=== PATIENT | female | born 1990 | race Caucasian/White ===

== ENCOUNTER → 2017-11-21 | Outpatient (CLI) | payer OTHER ==
[2017-11-21 15:11] VITALS: BP 112/72; PULSE 89; RESP 12; TEMP 98.5; BMI 20.7
--- NOTE | 2017-11-21 15:25 | P.GSHP ---
History of Present Illness H&P Date: 11/21/17 The patient is a 27-year-old white female who underwent a Pap smear and at that time the of healthcare provider felt that the patient had nodularity in her breast. She herself has not noted any nodularity that she is concerned about. She did however have 2 ultrasounds performed. The ultrasound revealed at the level o'clock position some mild shadowing which remained at the location which had previously seen some mild shadowing and was considered to be suspicious by the radiologist. Additionally at the 2 o'clock position there was some somewhat less well-visualized then previous area which was considered to be persistent though and also suspicious. The feeling was that there was subtle findings on ultrasound at the 11:00 and 2:00 positions. The patient denies any trauma to her breast. The patient has not had any infections of her breast. The patient has not had any nipple discharge or skin changes of concern. The patient has not noticed any cyclical changes in her breast related to her periods. Family history: 1. Brother: Brain tumor 2. Maternal grandfather: Colon cancer 3. Mother: Ovarian cancer Hormonal history: Menarche: 12 Pregnancies: One , breast-fed, patient was 23 Periods are regular Past surgical history: 1. Umbilical hernia 2. Tonsils and adenoids Past medical history: 1. Asthma 2. Kidney stones 3. Anxiety/depression Social history: Smokin packs per month Alcohol: Negative Drugs: Marijuana 2-3 times per week - Constitutional Comment: fever better now Constitutional: Reports fever, Denies chills - EENT Eyes: denies blurred vision, denies pain Ears: deny: decreased hearing, tinnitus Ears, nose, mouth and throat: Denies headache, Denies sore throat - Breasts Breasts: bilateral: as per HPI - Cardiovascular Cardiovascular: Denies chest pain, Denies shortness of breath - Respiratory Comment: smoker Respiratory: Denies cough, Denies 7 - Gastrointestinal Gastrointestinal: Denies abdominal pain, Denies diarrhea, Denies nausea, Denies vomiting - Genitourinary (Female) Comment: kidney stones Genitourinary: Reports hematuria - Menstruation Menstruation: Reports period normal - Musculoskeletal Comment: arthritis - Integumentary Comment: vitaligo - Neurological Neurological: Denies numbness, Denies weakness - Psychiatric Psychiatric: Reports anxiety, Reports depression - Endocrine Comment: patient with recent weight loss Endocrine: Reports weight change, Denies fatigue - Hematologic/Lymphatic Comment: none - Allergic/Immunologic Allergic/Immunologic: Reports seasonal allergies Medications and Allergies Allergies Allergy/AdvReac Type Severity Reaction Status Date / Time No Known Allergies Allergy Unverified 11/21/17 15:03 Surgical - Exam - General cachectic - Eyes normal ocular movement - ENT no hearing loss, no congestion - Neck no masses, trachea midline - Respiratory normal respiratory effort, clear to auscultation - Cardiovascular Rhythm: regular Heart Sounds: normal: S1, S2 - Abdomen Abdomen: soft, non tender, no guarding, no rigid, no rebound - Integumentary multiple tatoos - Neurologic no disoriented, no combative - Musculoskeletal normal gait, normal posture - Psychiatric oriented to time, oriented to person, oriented to place, speech is normal, memory intact Breast examination: Right breast: Multiple positional exam no dominant masses or nodules of concern in the right breast Right axilla: No adenopathy of concern Left breast: Multiple positional exam no dominant masses or nodules of concern in the left breast, special attention to the areas were ultrasound abnormalities were seen did not reveal any palpable lesions of concern Left axilla: No adenopathy of concern Results ultrasound results reviewed Assessment and Plan Assessment: Impression/plan: 1. Ultrasound abnormality left breast for which mammogram has been recommended 2. Fever of unknown origin 3. Kidney stones 4. Anxiety depression 5. Asthma 6. Nicotine dependence 7. Personality disorder 8. Vitamin deficiencies Plan: 1. Left breast mammogram depending on results of this will most likely follow the patient conservatively if we are unable to get a breast MRI will see patient in three months 2. Medical management of medical problems cc: Vickie CAMPOS; ( [facility])
--- NOTE | 2017-11-26 07:42 | MM ---
Reason for exam: clinical finding. Baseline mammogram. Physical Findings: Nurse did not find any significant physical abnormalities on exam. MG Diagnostic Mammo w CAD MARTIN Bilateral CC and MLO view(s) were taken. No prior studies available for comparison. The breast tissue is extremely dense which could obscure a lesion on mammography. No suspicious abnormality. However given the prior outside left breast abnormalities, biopsy should be considered at both sites. These results were verbally communicated with the patient and result sheet given to the patient on 11/22/17. ASSESSMENT: Suspicious, BI-RAD 4 RECOMMENDATION: Ultrasound core biopsy of the left breast. Ultrasound core biopsy left at 2 o'clock and 11 o'clock after prescan re-evaluation. Abnormal mammogram. Called Dr Prescott with mammographic findings and has scheduled an appointment for the patient for 12/05/17 at 12:[address] Prescott. PRELIMINARY REPORT CALLED AND FAXED TO DR. PRESCOTT ON 11/22/17.
== END | disposition home or self-care (01) ==
LOC: WWCWWP 14:55
PROVIDERS: ATTEND Surgery
DX: N63.10 Unspecified lump in the right breast, unspecified quadrant (principal); N63.20 Unspecified lump in the left breast, unspecified quadrant
CPT/HCPCS: 77066

== ENCOUNTER → 2017-12-05 | Day surgery (SDC) | payer OTHER ==
[2017-12-05 11:24] VITALS: BP 115/78; PULSE 61; RESP 16; TEMP 98.6; BMI 21.7
--- NOTE | 2017-12-05 14:57 | USB ---
US Discontinued Breast Bx LT No distinct abnormality. Core biopsy was discontinued. Recommend 6 month follow up. RECOMMENDATION: Ultrasound of the left breast in 6 months.
== END | disposition home or self-care (01) ==
LOC: RADUSWWP 10:04
PROVIDERS: ATTEND Surgery
DX: R92.8 Other abnormal and inconclusive findings on diagnostic imaging of breast (principal)

== ENCOUNTER 2018-05-19 13:22 | Emergency (ER) | payer OTHER ==
[2018-05-19 13:54] VITALS: RESP 18; TEMP 99.6
[2018-05-19] MEDS ORDERED: DIPH,PERTUS(ACELL)TETVAC-LF 0.5 ML VIAL IM ONE (14:50)
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
[2018-05-19 15:13] LABS: Appearance,Urine Clear (Clear); Bilirubin,Urine Negative (Negative); Blood,Urine Negative (Negative); Color,Urine Yellow; Glucose,Urine (UA) Negative (Negative); Ketones,Urine Negative (Negative); Leukocyte Esterase,Urine Negative (Negative); Nitrite,Urine Negative (Negative); Protein,Urine Negative (Negative); Specific Gravity,Urine 1.006 (1.001-1.035); Urobilinogen,Urine <2.0 mg/dL (<2.0)
--- NOTE | 2018-05-19 15:53 | XR ---
EXAMINATION TYPE: XR wrist complete LT, XR hand complete LT DATE OF EXAM: 05/19/2018 CLINICAL HISTORY: pain TECHNIQUE: Frontal, lateral and oblique images of the left wrist are obtained. COMPARISON: None. FINDINGS: There is no acute fracture/dislocation evident. The joint spaces appear within normal marinelli its. The overlying soft tissue appears unremarkable. IMPRESSION: There is no acute fracture or dislocation seen. ICD 10 NO FRACTURE, INITIAL EVALUATION EXAMINATION TYPE: XR wrist complete LT, XR hand complete LT DATE OF EXAM: 05/19/2018 CLINICAL HISTORY: pain TECHNIQUE: Frontal, lateral and oblique images of the left hand are obtained. COMPARISON: None. FINDINGS: There is no acute fracture/dislocation evident. The joint spaces appear within normal limi ts. The overlying soft tissue appears unremarkable. IMPRESSION: There is no acute fracture or dislocation. ICD 10 NO FRACTURE, INITIAL EVALUATION
--- NOTE | 2018-05-19 15:53 | XR ---
EXAMINATION TYPE: XR lumbar spine 2 or 3V DATE OF EXAM: 05/19/2018 CLINICAL HISTORY: pain TECHNIQUE: Three views of the lumbar spine are submitted. COMPARISON: None. FINDINGS: There are 5 lumbar type vertebral bodies identified. The lumbar spine shows satisfactory alignment w ithout evidence of acute fracture or dislocation. Vertebral body heights are within normal limits. Disc spaces are within normal limits. The overlying soft tissue appears unremarkable. IMPRESSION: No acute fracture or dislocation is seen in the lumbar spine. ICD 10 NO FRACTURE, INITIAL EVALUATION
--- NOTE | 2018-05-19 15:54 | XR ---
EXAMINATION TYPE: XR thoracic spine 2V DATE OF EXAM: 05/19/2018 CLINICAL HISTORY: pain TECHNIQUE: Frontal, lateral, and swimmer's view of thoracic spine are obtained. COMPARISON: None. FINDINGS: Thoracic spine show satisfactory alignment without evidence of acute fracture or dislocatio n. Vertebral body heights are preserved. Disc spaces are well preserved. Visualized ribs are unrem arkable. IMPRESSION: No acute fracture or dislocation is seen in the thoracic spine. ICD 10 NO FRACTURE, INIT IAL EVALUATION
--- NOTE | 2018-05-19 15:54 | XR ---
EXAMINATION TYPE: XR cervical spine comp DATE OF EXAM: 05/19/2018 CLINICAL HISTORY: pain COMPARISON: NONE TECHNIQUE: Frontal, lateral, oblique, swimmers, and open mouth view of the cervical spine are obtaine d. FINDINGS: The cervical spine is visualized in its entirety from C1 thru the top of T1 level. It is s atisfactory in alignment without evidence of acute fracture or dislocation. The pre-vertebral soft t issue appears within normal limits. Borderline to mild degenerative narrowing C4-5 through C6-7. The C1-C2 articulation is unremarkable on the open mouth view. The oblique images are within normal limi ts. IMPRESSION: No acute fracture or dislocation is seen in the cervical spine.ICD 10 NO FRACTURE, INITI AL EVALUATION
--- NOTE | 2018-05-19 15:56 | XR ---
EXAMINATION TYPE: XR ribs bilat w pa chest xray DATE OF EXAM: 05/19/2018 COMPARISON: NONE HISTORY: Pain TECHNIQUE: Single view of the chest 8 views of the ribs are submitted. FINDINGS: The lungs are clear. No Evidence for pneumothorax. No evidence for focal contusion. Medi astinal structures are midline. Evaluation of the ribs fails to demonstrate evidence for displaced r ib fracture or secondary sign of rib fracture. IMPRESSION: Negative study
--- NOTE | 2018-05-19 15:57 | XR ---
EXAMINATION TYPE: XR tibia fibula bilateral DATE OF EXAM: 05/19/2018 CLINICAL HISTORY: Pain TECHNIQUE: Two views of the bilateral tibia and fibula are obtained. COMPARISON: None. FINDINGS: There is no acute fracture or dislocation. The knee and ankle joints appear within normal limits. The overlying soft tissue appears unremarkable. IMPRESSION: There is no acute fracture or dislocation.
[2018-05-19 16:34] VITALS: BP 101/90; PULSE 78
== END 2018-05-19 17:07 | disposition home or self-care (01) ==
LOC: EC 13:22
DX: S80.12XA Contusion of left lower leg, initial encounter (principal); S20.02XA Contusion of left breast, initial encounter; S50.812A Abrasion of left forearm, initial encounter; Z23 Encounter for immunization; J45.909 Unspecified asthma, uncomplicated; F41.9 Anxiety disorder, unspecified; F32.9 Major depressive disorder, single episode, unspecified; F17.200 Nicotine dependence, unspecified, uncomplicated; Z79.51 Long term (current) use of inhaled steroids; Z79.899 Other long term (current) drug therapy; Y08.02XA Assault by strike by baseball bat, initial encounter
CPT/HCPCS: 71111; 72050; 72070; 72100; 81003; 81025; 90471; 90715; 99284

== ENCOUNTER 2020-11-04 21:16 | Emergency (ER) | payer OTHER ==
[2020-11-04 21:29] VITALS: BP 133/88; PULSE 74; RESP 20; TEMP 98.5
[2020-11-04] MEDS ORDERED: KETOROLAC 15 MG/ML 1 ML VIAL IM STA (22:03)
[2020-11-04] MEDS ORDERED: ACET/COD 300 MG/30 MG STARTER PACK 6 TAB BTL PO STA (22:15)
--- NOTE | 2020-11-04 22:15 | ED ---
Skin/Abscess/FB HPI - General Chief complaint: Skin/Abscess/Foreign Body Stated complaint: Foot infection Source: patient, RN notes reviewed Mode of arrival: ambulatory Limitations: no limitations - History of Present Illness Initial comments: Patient is a 30-year-old female that is complaining of a tender spot between the left fourth and fifth toe. She notes that she's had this for a while. 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 She note that she has gotten cream for for which seemed to help. She noted that is not oozing or draining any fluid or pus. She denied any other issues or complaints involving her left foot. She was otherwise a well-appearing 30-year-old female no apparent distress or pain. She denied any chest pain shortness breath headache nausea vomiting diarrhea constipation fever fatigue chills. - Related Data Home Medications Medication Instructions Recorded Confirmed Albuterol Inhaler (Mhu) [Ventolin 1 - 2 puff INHALATION RT-Q6H PRN 11/27/17 05/19/18 Hfa Inhaler] Citalopram Hydrobromide [CeleXA] 40 mg PO DAILY 11/27/17 05/19/18 Fluticasone Nasal [place] [Flonase 1 spray EA NOSTRIL DAILY 11/27/17 05/19/18 Nasal [place]] L.acidoph,Paracasei, B.lactis 1 each PO DAILY 11/27/17 05/19/18 [Probiotic] Budesonide [Pulmicort Flexhaler] 1 puff INHALATION RT-BID 05/19/18 05/19/18 Cholecalciferol (Vitamin D3) 4,000 unit PO DAILY 05/19/18 05/19/18 [Vitamin D3] Cyanocobalamin [Vitamin B-12 2 mg IM Q84D 05/19/18 05/19/18 Injection] Multivitamins, Thera [Multivitamin 1 tab PO DAILY 05/19/18 05/19/18 (formulary)] OXcarbazepine 600 mg PO DAILY 05/19/18 05/19/18 Prazosin [Minipress] 1 mg PO HS 05/19/18 05/19/18 Triamcinolone 0.5% Cream [Kenalog 1 applic TOPICAL BID 05/19/18 05/19/18 0.5% Cream] predniSONE [Deltasone] 40 mg PO DAILY 05/19/18 05/19/18 risperiDONE [RisperDAL] 3 mg PO HS 05/19/18 05/19/18 Previous Rx's Medication Instructions Recorded Clotrimazole Cream [Lotrimin Cream] 1 applic TOPICAL BID #1 tube 11/04/20 Allergies Allergy/AdvReac Type Severity Reaction Status Date / Time latex Allergy Rash/Hives Verified 11/04/20 21:29 Review of Systems ROS Statement: Those systems with pertinent positive or pertinent negative responses have been documented in the HPI. ROS Other: All systems not noted in ROS Statement are negative. Past Medical History Past Medical History: Asthma Additional Past Medical History / Comment(s): degenerative disc disease History of Any Multi-Drug Resistant Organisms: None Reported Past Surgical History: Appendectomy, Tonsillectomy Additional Past Surgical History / Comment(s): umbilical hernia Past Anesthesia/Blood Transfusion Reactions: No Reported Reaction Past Psychological History: Anxiety, Depression Smoking Status: Current every day smoker Past Alcohol Use History: Occasional Past Drug Use History: Marijuana General Exam Limitations: no limitations General appearance: alert, in no apparent distress Head exam: Present: atraumatic, normocephalic, normal inspection Eye exam: Present: normal appearance, PERRL, EOMI. Absent: scleral icterus, conjunctival injection, periorbital swelling Neck exam: Absent: normal inspection Respiratory exam: Present: normal lung sounds bilaterally. Absent: respiratory distress, wheezes, rales, rhonchi, stridor Cardiovascular Exam: Present: regular rate, normal rhythm, normal heart sounds. Absent: systolic murmur, diastolic murmur, rubs, gallop, clicks Extremities exam: Present: normal inspection, full ROM, normal capillary refill, other (Patch of emaciated wakes him in the interdigit space between the left fourth and fifth toe.). Absent: tenderness, pedal edema, joint swelling, calf tenderness Neurological exam: Present: alert, oriented X3 Psychiatric exam: Present: normal affect, normal mood Skin exam: Present: warm, dry, intact, normal color. Absent: rash Course Vital Signs 11/04/20 21:25 Temperature 98.5 F Pulse Rate 74 Respiratory 20 Rate Blood Pressure 133/88 O2 Sat by Pulse 100 Oximetry Medical Decision Making - Medical Decision Making 30-year-old female with left with an fifth toe fungal infection. Given patient's clinical signs and symptoms most likely has a fungal infection in between her left fourth and fifth toe. Skin appears to be emaciated for moisture, non-erythematous. Case discussed with Dr. Marie, patient discharge home with follow-up to primary care. Disposition Clinical Impression: Infection, fungal, left foot Disposition: HOME SELF-CARE Condition: Stable Instructions (If sedation given, give patient instructions): Tinea Versicolor (ED) Additional Instructions: Please return to the Emergency Department if symptoms worsen or any other concerns. Follow-up with primary care in next several days. Use antifungal cream as prescribed. Keep area as dry and as clean as possible. Take wet socks and shoes off as soon as possible after work. Prescriptions: Clotrimazole Cream [Lotrimin Cream] 1 applic TOPICAL BID #1 tube Is patient prescribed a controlled substance at d/c from ED?: No Referrals: None,Stated [Primary Care Provider] - 1-2 days Time of Disposition: 22:15
--- NOTE | 2020-11-04 22:28 | ED ---
Disposition Clinical Impression: Infection, fungal, left foot Disposition: HOME SELF-CARE Condition: Stable Instructions (If sedation given, give patient instructions): Tinea Versicolor (ED) Additional Instructions: Please return to the Emergency Department if symptoms worsen or any other concerns. Follow-up with primary care in next several days. Use antifungal cream as prescribed. Keep area as dry and as clean as possible. Take wet socks and shoes off as soon as possible after work. Prescriptions: Clotrimazole Cream [Lotrimin Cream] 1 applic TOPICAL BID #1 tube Is patient prescribed a controlled substance at d/c from ED?: No Referrals: None,Stated [Primary Care Provider] - 1-2 days Ziyad Higginbotham DPM [STAFF PHYSICIAN] - 1-2 days Time of Disposition: 22:28
== END 2020-11-04 22:45 | disposition home or self-care (01) ==
LOC: EC 21:16
DX: B35.3 Tinea pedis (principal); J45.909 Unspecified asthma, uncomplicated; F17.200 Nicotine dependence, unspecified, uncomplicated; F12.90 Cannabis use, unspecified, uncomplicated; Z79.52 Long term (current) use of systemic steroids; Z79.51 Long term (current) use of inhaled steroids; Z79.899 Other long term (current) drug therapy; Z91.040 Latex allergy status; Z90.49 Acquired absence of other specified parts of digestive tract
CPT/HCPCS: 87070; 87205; 96372; 99283; J1885

== ENCOUNTER 2021-02-18 06:52 | Emergency (ER) | payer OTHER ==
[2021-02-18 06:59] VITALS: RESP 18
[2021-02-18] MEDS ORDERED: PANTOPRAZOLE 40 MG/10 ML VIAL IVP STA (07:15)
[2021-02-18] MEDS ORDERED: SODIUM CHLORIDE 0.9% 500 ML 500 ML IV STA (07:15)
[2021-02-18] MEDS ORDERED: ONDANSETRON 4 MG/2 ML VIAL IVP STA (07:15)
[2021-02-18] MEDS ORDERED: HYDROmorphone 0.5 MG/0.5 ML SYRINGE IVP STA ×2 (07:15→07:53)
[2021-02-18] MEDS ORDERED: SODIUM CHLORIDE 0.9% 1,000 ML IV STA (07:15)
[2021-02-18 07:39] LABS: Basophils # (A) 0.1 k/uL (0-0.2); Basophils % (A) 0 %; Eosinophils # (A) 0.3 k/uL (0-0.7); Eosinophils % (A) 2 %; HCT 49.3 % (34.0-46.0); HGB 15.9 gm/dL (11.4-16.0); Lymphocytes # (A) 2.1 k/uL (1.0-4.8); Lymphocytes % (A) 13 %; MCHC 32.2 g/dL (31.0-37.0); MCV 96.3 fL (80.0-100.0); Mean Platelet Volume 7.2; Monocytes # (A) 0.8 k/uL (0-1.0); Monocytes % (A) 5 %; Neutrophils # (A) 12.7 k/uL (1.3-7.7); Neutrophils % (A) 78 %; Platelet Count 401 k/uL (150-450); RBC 5.12 m/uL (3.80-5.40); RDW 12.5 % (11.5-15.5); WBC 16.2 k/uL (3.8-10.6)
--- NOTE | 2021-02-18 07:44 | ED ---
General Adult HPI - General Chief complaint: Nausea/Vomiting/Diarrhea Stated complaint: vomiting Time Seen by Provider: 02/18/21 07:03 Source: patient, RN notes reviewed Mode of arrival: ambulatory Limitations: no limitations - History of Present Illness Initial comments: 30-year-old female presents emergency Department with chief complaint of abdominal pain. Patient states she's been sick over the last several weeks with cough congestion which she had a negative [place]. Patient states that starting to feel better but states that she started having severe nausea vomiting diarrhea abdominal pain that is increasing. She's had a prior section and appendectomy, hernia repair. Patient reports no recent fevers chills she states that she does have urinary frequency and pressure. - Related Data Home Medications Medication Instructions Recorded Confirmed Albuterol Inhaler (Mhu) [Ventolin 1 - 2 puff INHALATION RT-Q6H PRN 11/27/17 05/19/18 Hfa Inhaler] Citalopram Hydrobromide [CeleXA] 40 mg PO DAILY 11/27/17 05/19/18 Fluticasone Nasal [place] [Flonase 1 spray EA NOSTRIL DAILY 11/27/17 05/19/18 Nasal [place]] L.acidoph,Paracasei, B.lactis 1 each PO DAILY 11/27/17 05/19/18 [Probiotic] Budesonide [Pulmicort Flexhaler] 1 puff INHALATION RT-BID 05/19/18 05/19/18 Cholecalciferol (Vitamin D3) 4,000 unit PO DAILY 05/19/18 05/19/18 [Vitamin D3] Cyanocobalamin [Vitamin B-12 2 mg IM Q84D 05/19/18 05/19/18 Injection] Multivitamins, Thera [Multivitamin 1 tab PO DAILY 05/19/18 05/19/18 (formulary)] OXcarbazepine 600 mg PO DAILY 05/19/18 05/19/18 Prazosin [Minipress] 1 mg PO HS 05/19/18 05/19/18 Triamcinolone 0.5% Cream [Kenalog 1 applic TOPICAL BID 05/19/18 05/19/18 0.5% Cream] predniSONE [Deltasone] 40 mg PO DAILY 05/19/18 05/19/18 risperiDONE [RisperDAL] 3 mg PO HS 05/19/18 05/19/18 Previous Rx's Medication Instructions Recorded Clotrimazole Cream [Lotrimin Cream] 1 applic TOPICAL BID #1 tube 11/04/20 Nitrofurantoin Monohyd/M-Cryst 100 mg PO Q12HR #14 cap 02/18/21 [Macrobid] Omeprazole [PriLOSEC] 40 mg PO DAILY #14 cap 02/18/21 Ondansetron Odt [Zofran Odt] 4 mg PO Q8HR PRN #10 tab 02/18/21 Allergies Allergy/AdvReac Type Severity Reaction Status Date / Time latex Allergy Rash/Hives Verified 02/18/21 06:59 Review of Systems ROS Statement: Those systems with pertinent positive or pertinent negative responses have been documented in the HPI. ROS Other: All systems not noted in ROS Statement are negative. Past Medical History Past Medical History: Asthma Additional Past Medical History / Comment(s): degenerative disc disease History of Any Multi-Drug Resistant Organisms: None Reported Past Surgical History: Appendectomy, Tonsillectomy Additional Past Surgical History / Comment(s): umbilical hernia Past Anesthesia/Blood Transfusion Reactions: No Reported Reaction Past Psychological History: Anxiety, Depression Smoking Status: Current every day smoker Past Alcohol Use History: Occasional Past Drug Use History: Marijuana General Exam Limitations: no limitations General appearance: alert, in no apparent distress Head exam: Present: atraumatic, normocephalic, normal inspection Eye exam: Present: normal appearance, PERRL, EOMI. Absent: scleral icterus, conjunctival injection, periorbital swelling ENT exam: Present: normal exam, normal oropharynx, mucous membranes moist Neck exam: Present: normal inspection, full ROM. Absent: tenderness, meningismus, lymphadenopathy Respiratory exam: Present: normal lung sounds bilaterally. Absent: respiratory distress, wheezes, rales, rhonchi, stridor Cardiovascular Exam: Present: regular rate, normal rhythm, normal heart sounds. Absent: systolic murmur, diastolic murmur, rubs, gallop, clicks GI/Abdominal exam: Present: soft, tenderness, normal bowel sounds. Absent: distended, guarding, rebound, rigid Back exam: Absent: CVA tenderness (R), CVA tenderness (L) Neurological exam: Present: alert Skin exam: Present: warm, dry, intact, normal color. Absent: rash Course Vital Signs 02/18/21 02/18/21 06:56 08:51 Temperature 97.4 F L Pulse Rate 89 73 Respiratory 18 18 Rate Blood Pressure 123/76 105/67 O2 Sat by Pulse 98 100 Oximetry Medical Decision Making - Medical Decision Making patient CT shows evidence of dilated biliary tree, ultrasound was performed is essentially unremarkable other than mild dilated pancreatic duct patient feels greatly improved at this time I do believe chest smiling gastritis, patient has evidence of urinary tract infection. Patient was given antibiotics we discharged stable condition return parameters were discussed. - Lab Data Result diagrams: 02/18/21 07:21 02/18/21 07:21 Lab Results 02/18/21 02/18/21 02/18/21 Range/Units 07:21 07:21 07:21 WBC 16.2 H (3.8-10.6) k/uL RBC 5.12 (3.80-5.40) m/uL Hgb 15.9 (11.4-16.0) gm/dL Hct 49.3 H (34.0-46.0) % MCV 96.3 (80.0-100.0) fL MCH 31.0 (25.0-35.0) pg MCHC 32.2 (31.0-37.0) g/dL RDW 12.5 (11.5-15.5) % Plt Count 401 (150-450) k/uL MPV 7.2 Neutrophils % 78 % Lymphocytes % 13 % Monocytes % 5 % Eosinophils % 2 % Basophils % 0 % Neutrophils # 12.7 H (1.3-7.7) k/uL Lymphocytes # 2.1 (1.0-4.8) k/uL Monocytes # 0.8 (0-1.0) k/uL Eosinophils # 0.3 (0-0.7) k/uL Basophils # 0.1 (0-0.2) k/uL Sodium 134 L (137-145) mmol/L Potassium 4.2 (3.5-5.1) mmol/L Chloride 104 (98-107) mmol/L Carbon Dioxide 20 L (22-30) mmol/L Anion Gap 10 mmol/L BUN 15 (7-17) mg/dL Creatinine 0.69 (0.52-1.04) mg/dL Est GFR (CKD-EPI)AfAm >90 (>60 ml/min/1.73 sqM) Est GFR (CKD-EPI)NonAf >90 (>60 ml/min/1.73 sqM) Glucose 91 (74-99) mg/dL Plasma Lactic Acid [place] 1.4 (0.7-2.0) mmol/L Calcium 9.4 (8.4-10.2) mg/dL Total Bilirubin 0.8 (0.2-1.3) mg/dL AST 22 (14-36) U/L ALT 20 (4-34) U/L Alkaline Phosphatase 109 (38-126) U/L Total Protein 7.2 (6.3-8.2) g/dL Albumin 4.5 (3.5-5.0) g/dL Amylase 80 (30-110) U/L Lipase 68 (23-300) U/L Urine Color Urine Appearance (Clear) Urine pH (5.0-8.0) Ur Specific [place] (1.001-1.035) Urine Protein (Negative) Urine Glucose (UA) (Negative) Urine Ketones (Negative) Urine Blood (Negative) Urine Nitrite (Negative) Urine Bilirubin (Negative) Urine Urobilinogen (<2.0) mg/dL Ur Leukocyte Esterase (Negative) Urine WBC (0-5) /hpf Ur Squamous Epith Cells (0-4) /hpf Urine Bacteria (None) /hpf Urine Mucus (None) /hpf Urine HCG, Qual (Not Detectd) 02/18/21 02/18/21 Range/Units 07:42 07:42 WBC (3.8-10.6) k/uL RBC (3.80-5.40) m/uL Hgb (11.4-16.0) gm/dL Hct (34.0-46.0) % MCV (80.0-100.0) fL MCH (25.0-35.0) pg MCHC (31.0-37.0) g/dL RDW (11.5-15.5) % Plt Count (150-450) k/uL MPV Neutrophils % % Lymphocytes % % Monocytes % % Eosinophils % % Basophils % % Neutrophils # (1.3-7.7) k/uL Lymphocytes # (1.0-4.8) k/uL Monocytes # (0-1.0) k/uL Eosinophils # (0-0.7) k/uL Basophils # (0-0.2) k/uL Sodium (137-145) mmol/L Potassium (3.5-5.1) mmol/L Chloride (98-107) mmol/L Carbon Dioxide (22-30) mmol/L Anion Gap mmol/L BUN (7-17) mg/dL Creatinine (0.52-1.04) mg/dL Est GFR (CKD-EPI)AfAm (>60 ml/min/1.73 sqM) Est GFR (CKD-EPI)NonAf (>60 ml/min/1.73 sqM) Glucose (74-99) mg/dL Plasma Lactic Acid [place] (0.7-2.0) mmol/L Calcium (8.4-10.2) mg/dL Total Bilirubin (0.2-1.3) mg/dL AST (14-36) U/L ALT (4-34) U/L Alkaline Phosphatase (38-126) U/L Total Protein (6.3-8.2) g/dL Albumin (3.5-5.0) g/dL Amylase (30-110) U/L Lipase (23-300) U/L Urine Color Yellow Urine Appearance Cloudy H (Clear) Urine pH 5.5 (5.0-8.0) Ur Specific [place] 1.027 (1.001-1.035) Urine Protein Trace H (Negative) Urine Glucose (UA) Negative (Negative) Urine Ketones Negative (Negative) Urine Blood Negative (Negative) Urine Nitrite Positive H (Negative) Urine Bilirubin Negative (Negative) Urine Urobilinogen <2.0 (<2.0) mg/dL Ur Leukocyte Esterase Trace H (Negative) Urine WBC 5 (0-5) /hpf Ur Squamous Epith Cells 9 H (0-4) /hpf Urine Bacteria Occasional H (None) /hpf Urine Mucus Many H (None) /hpf Urine HCG, Qual Not Detected (Not Detectd) Disposition Clinical Impression: UTI (urinary tract infection), Gastritis, Abdominal pain Disposition: HOME SELF-CARE Condition: Stable Instructions (If sedation given, give patient instructions): Abdominal Pain (ED) Additional Instructions: Please return to the Emergency Department if symptoms worsen or any other concerns. Prescriptions: Nitrofurantoin Monohyd/M-Cryst [Macrobid] 100 mg PO Q12HR #14 cap Omeprazole [PriLOSEC] 40 mg PO DAILY #14 cap Ondansetron Odt [Zofran Odt] 4 mg PO Q8HR PRN #10 tab PRN Reason: Nausea Is patient prescribed a controlled substance at d/c from ED?: No Referrals: None,Stated [Primary Care Provider] - 1-2 days Time of Disposition: 09:39
[2021-02-18 07:53] LABS: Appearance,Urine Cloudy (Clear); Bacteria,Urine Occasional /hpf; Bilirubin,Urine Negative (Negative); Blood,Urine Negative (Negative); Color,Urine Yellow; Glucose,Urine (UA) Negative (Negative); Ketones,Urine Negative (Negative); Leukocyte Esterase,Urine Trace (Negative); Mucus,Urine Many /hpf; Nitrite,Urine Positive (Negative); PH, Urine 5.5 (5.0-8.0); Protein,Urine Trace (Negative); Specific Gravity,Urine 1.027 (1.001-1.035); Squamous Epithelial Cell,Urine 9 /hpf (0-4); Urobilinogen,Urine <2.0 mg/dL (<2.0); WBC,Urine 5 /hpf (0-5)
[2021-02-18 07:53] LABS: ALT 20 U/L (4-34); AST 22 U/L (14-36); African American GFR (CKD) >90 (>60 ml/min/1.73 sqM); Albumin 4.5 g/dL (3.5-5.0); Alkaline Phosphatase 109 U/L (38-126); Amylase 80 U/L (30-110); Anion Gap 10 mmol/L; Blood Urea Nitrogen 15 mg/dL (7-17); Calcium 9.4 mg/dL (8.4-10.2); Carbon Dioxide 20 mmol/L (22-30); Chloride 104 mmol/L (98-107); Glucose 91 mg/dL (74-99); Lipase 68 U/L (23-300); Non-African American GFR(CKD) >90 (>60 ml/min/1.73 sqM); Potassium 4.2 mmol/L (3.5-5.1); Sodium 134 mmol/L (137-145); Total Bilirubin 0.8 mg/dL (0.2-1.3); Total Protein 7.2 g/dL (6.3-8.2)
[2021-02-18] MEDS ORDERED: KETOROLAC 15 MG/ML 1 ML VIAL IVP STA (07:53)
--- NOTE | 2021-02-18 08:28 | XR ---
EXAMINATION TYPE: XR chest 2V DATE OF EXAM: 02/18/2021 COMPARISON: 05/19/2018 INDICATION: Cough TECHNIQUE: Frontal and lateral views of the chest are obtained. FINDINGS: The heart size is normal. The pulmonary vasculature is normal. The lungs are clear. IMPRESSION: 1. No acute pulmonary process.
--- NOTE | 2021-02-18 08:42 | CT ---
EXAMINATION TYPE: CT abdomen pelvis w con DATE OF EXAM: 02/18/2021 COMPARISON: 06/05/2011 INDICATION: Abd pain DLP: 502.1 mGycm, Automated exposure control for dose reduction was used. CONTRAST: 100 mL of Isovue 300. Study performed without Oral Contrast TECHNIQUE: Axial images were obtained from above the diaphragm to the pubic rami in the axial plane a t 5 mm thick sections. Reconstructed images are reviewed on the computer in the coronal plane. FINDINGS: Limited CT sections are obtained the lung bases. The lung bases are clear. CT ABDOMEN: Liver: May be some mild prominence of the biliary tree Spleen: Normal Pancreas: Normal Adrenal glands: The adrenal glands are normal. Gallbladder: Normal Kidneys: No masses are evident. No hydronephrosis is present. No cysts are present. Delayed images were obtained through the kidneys, which remain unremarkable. Aorta: Normal Inferior vena cava: Normal. CT PELVIS: Loops of bowel within the abdomen and pelvis are normal. This study is bilateral contrast limitin g bowel evaluation. Some fecal debris is within the colon. Appendix: Not identified. No dilated tubular structure or inflammatory change is evident Urinary bladder: Normal. Genitourinary structures: Uterus is in the left hemipelvis. Adnexal regions appear normal. Osseous structures: No suspicious lytic or sclerotic lesions. IMPRESSIONS: 1. May be some mild prominence of the biliary tree without a specific etiology identified. Liver oth erwise appears unremarkable. 2. No acute abdomen and pelvic abnormalities otherwise identified.
--- NOTE | 2021-02-18 09:27 | US ---
EXAMINATION TYPE: US gallbladder DATE OF EXAM: 02/18/2021 COMPARISON: None CLINICAL HISTORY: pain. RUQ pain, N/V EXAM MEASUREMENTS: Liver Length: 19.7 cm Gallbladder Wall: 0.4 cm CBD: 0.3 cm Right Kidney: 10.7 x 4.5 x 3.8 cm Pancreas: main pancreatic duct= 1.8 mm Liver: Enlarged in size Gallbladder: wnl Evidence for sonographic Masters's sign: neg CBD: wnl Right Kidney: lower pole obscured by overlying bowel gas IMPRESSION: 1. Hepatomegaly.
[2021-02-18] MEDS ORDERED: cefTRIAXone IN SWFI 1,000 MG/10 ML SYRINGE IVP STA (09:31)
[2021-02-18] MEDS ORDERED: MAG HYDROX/AL HYDROX/SIMETH 30 ML, HYOSCYAMINE ELIXIR 10 ML PO STA ×2 (09:37)
[2021-02-18] MEDS ORDERED: ACET/COD 300 MG/30 MG STARTER PACK 6 TAB BTL PO STA (09:37)
[2021-02-18 10:13] VITALS: BP 107/72; PULSE 70; TEMP 97.6
== END 2021-02-18 10:15 | disposition home or self-care (01) ==
LOC: EC 06:52
DX: K29.70 Gastritis, unspecified, without bleeding (principal); N39.0 Urinary tract infection, site not specified; F17.200 Nicotine dependence, unspecified, uncomplicated; F12.90 Cannabis use, unspecified, uncomplicated; J45.909 Unspecified asthma, uncomplicated; F32.9 Major depressive disorder, single episode, unspecified; F41.9 Anxiety disorder, unspecified; Z79.52 Long term (current) use of systemic steroids; Z79.51 Long term (current) use of inhaled steroids; Z79.899 Other long term (current) drug therapy
CPT/HCPCS: 36415; 80053; 82150; 83605; 83690; 85025; 81001; 81025; 71046; 76705; 74177; 99284; 96374; 96375 ×4; 96361; J2405; J0696; J1885; C9113; J1170; Q9967

== ENCOUNTER 2021-10-29 14:49 | Emergency (ER) | payer OTHER ==
[2021-10-29 14:54] VITALS: BP 134/86; PULSE 60; RESP 16; TEMP 98.2
[2021-10-29] MEDS ORDERED: DIPH,PERTUS(ACELL)TETVAC-LF 0.5 ML VIAL IM ONE (15:48)
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
== END 2021-10-29 16:08 | disposition home or self-care (01) ==
LOC: EC 14:49
DX: T22.20XA Burn of second degree of shoulder and upper limb, except wrist and hand, unspecified site, initial encounter (principal); T31.0 Burns involving less than 10% of body surface; J45.909 Unspecified asthma, uncomplicated; F17.200 Nicotine dependence, unspecified, uncomplicated; Z79.51 Long term (current) use of inhaled steroids; Z79.52 Long term (current) use of systemic steroids; Z91.040 Latex allergy status; X12.XXXA Contact with other hot fluids, initial encounter
CPT/HCPCS: 99283